=== PATIENT | female | born 2000 | race Caucasian/White ===

== ENCOUNTER 2019-03-01 09:40 | Emergency (ER) | payer SELFPAY ==
[2019-03-01] MEDS ORDERED: ZOFRAN4 MG/TAB PO (11:55)
[2019-03-01 12:03] VITALS: BP 111/60
== END 2019-03-01 12:06 | disposition home or self-care (01) | DRG 103 ==
LOC: ED 09:40
DX: R51 Headache (principal); R11.0 Nausea; H53.149 Visual discomfort, unspecified